=== PATIENT | male | born 1985 | race American Indian/Alaskan Native ===

== ENCOUNTER 2016-07-30 15:20 | Emergency (ER) | payer SELFPAY ==
--- NOTE | 2016-07-30 19:56 | Emergency Department Report ---
HPI - General Chief Complaint: Earache Time Seen by Provider: 07/30/16 19:50 - HPI HPI: Patient here complaining of left ear pressure and pain 2 days. She is complaining that lymph nodes around lt ear is swollen for couple days. Denies any nausea or vomiting. Denies any sore throat. Denies any coughing. Denies any facial trauma. Denies fever or chills. Pain to left ear is 7 out of 10. Denies any chest pain or shortness of breath. Patient has a history of HIV and equal [facility] Department for treatment. He said he called today and they're going to set up an appointment for him. He is on medication for HIV but he is not consistent in taking them. ED Past Medical Hx - Past Medical History Previous Medical History?: Yes Hx HIV: Yes (NONCOMPLIANT WITH MEDS) - Surgical History Past Surgical History?: No - Family History Family history: no significant - Social History Smoking Status: Light Tobacco Smoker Substance Use Type: Alcohol - Medications Home Medications: Home Medications Medication Instructions Recorded Confirmed Last Taken Type Amoxicillin [Amoxicillin TAB] 875 mg PO Q12H #20 tablet 07/30/16 Unknown Rx Ibuprofen [Motrin] 600 mg PO Q8H PRN #15 tablet 07/30/16 Unknown Rx ED Review of Systems ROS: Stated complaint: LT EAR PAIN AND SWELLING Other details as noted in HPI Comment: All other systems reviewed and negative Constitutional: denies: chills, fever Eyes: denies: eye pain ENT: ear pain. denies: throat pain, dental pain, congestion Respiratory: no symptoms reported Cardiovascular: denies: chest pain, palpitations, edema, syncope Gastrointestinal: denies: abdominal pain, nausea, vomiting, diarrhea Skin: denies: rash Neurological: denies: headache, weakness, numbness, paresthesias, confusion, abnormal gait, vertigo Physical Exam - Physical Exam Vital Signs: Vital Signs 07/30/16 15:50 Temperature 97.9 F Pulse Rate 67 Respiratory 18 Rate Blood Pressure 127/88 O2 Sat by Pulse 99 Oximetry General: General this is a 41-year-old male well-nourished well-developed in no acute distress. Physical Exam: Head: Normocephalic atraumatic Mouth: Moist, no pharyngeal exudate or erythema. Uvula is midline and oral airway is patent. No gingival enlargement or dental tenderness. No facial swelling. No peritonsillar abscesses. Neck: Supple, no C-spine tenderness, no tracheal deviation. Nontender to palpate. positive cervical adenopathy Ears: Bilateral TMs congested erythema to left TM. Positive preauricula Pelvic lymphadenopathy .bilateral EAC without any redness swelling or drainage Eyes: Bilateral pupils equal and reactive to light, bilateral EOM intact. Bilateral sclera and conjunctiva without injection. Normal accommodation Nose: Mucosa moist,NL mucosa. maxillary and frontal sinus non-tender to palpate. Lungs:Clear to auscultate bilaterally no rhonchi wheezes or rales. Normal work of breathing extremity; No CCE. +2 pulses. No neurovascular compromise Cardiovascular: S1-S2, regular rate rhythm. No murmurs. Skin: clean Dry and intact no rash no lesions Psych: Normal mood and behavior ED Course Vital Signs 07/30/16 15:50 Temperature 97.9 F Pulse Rate 67 Respiratory 18 Rate Blood Pressure 127/88 O2 Sat by Pulse 99 Oximetry - Reevaluation(s) Reevaluation #1: 07/30/16 20:31 ED stay uneventful ED Medical Decision Making - Medical Decision Making ED course: I instructed patient based on my physical exam he has a left ear infection and will be treated with antibiotic. I discussed the patient that he needs to follow up with [facility] as this is where he goes for his HIV management in 2-3 days. He reports understanding of need for follow-up. Patient discharged home with prescription for amoxicillin and Motrin Critical care attestation.: If time is entered above; I have spent that time in minutes in the direct care of this critically ill patient, excluding procedure time. ED Disposition Clinical Impression: Otalgia of left ear Otitis media of left ear Qualifiers: Otitis media type: unspecified Chronicity: unspecified Qualified Code(s): H66.92 - Otitis media, unspecified, left ear Disposition: DISCHARGED TO HOME OR SELFCARE Is pt being admited?: No Does the pt Need Aspirin: No Condition: Stable Instructions: Otitis Media (ED), Earache (ED) Additional Instructions: Please call [facility] in the morning and schedule appointment for follow-up visit in 2-3 days. Take all medication as prescribed. Prescriptions: Amoxicillin [Amoxicillin TAB] 875 mg PO Q12H #20 tablet Ibuprofen [Motrin] 600 mg PO Q8H PRN #15 tablet PRN Reason: Pain [facility] - [facility]-3 Days Forms: Work/School Release Form(ED)
[2016-07-30 21:18] VITALS: BP 122/78
== END 2016-07-30 21:24 | disposition home or self-care (01) ==
LOC: ED 15:20
DX: H66.92 Otitis media, unspecified, left ear (principal); F17.200 Nicotine dependence, unspecified, uncomplicated; Z21 Asymptomatic human immunodeficiency virus [HIV] infection status
CPT/HCPCS: 99282

== ENCOUNTER 2019-06-18 20:57 | Emergency (ER) | payer SELFPAY ==
[2019-06-18 21:17] VITALS: BP 146/98
[2019-06-19] MEDS ORDERED: IBUPROFEN 600 MG TAB PO ONE (01:42)
[2019-06-19] MEDS ORDERED: ACETAMINOPHEN 500 MG TAB PO ONE (01:42)
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
== END 2019-06-19 04:10 | disposition home or self-care (01) ==
LOC: ED 20:57
DX: S00.83XA Contusion of other part of head, initial encounter (principal); J32.0 Chronic maxillary sinusitis; F17.200 Nicotine dependence, unspecified, uncomplicated; F12.10 Cannabis abuse, uncomplicated; Z21 Asymptomatic human immunodeficiency virus [HIV] infection status; Z79.1 Long term (current) use of non-steroidal anti-inflammatories (NSAID); Z79.2 Long term (current) use of antibiotics; Z79.899 Other long term (current) drug therapy; V49.49XA Driver injured in collision with other motor vehicles in traffic accident, initial encounter; Y93.89 Activity, other specified; Y92.89 Other specified places as the place of occurrence of the external cause; Y99.8 Other external cause status
CPT/HCPCS: 70486